=== PATIENT | male | born 1960 | race African-American/Black ===

== ENCOUNTER 2016-07-07 18:43 | Emergency (ER) | payer BC, OTHER ==
--- NOTE | 2016-07-07 19:02 | ED Physician Documentation ---
Lower Extremity Problem - HISTORIAN Historian: patient - HPI Location of Injury: L leg Onset: other (yesterday) Recent Injury: No Quality: pain, swelling Exacerbated By: walking Relieved By: nothing Associated Symptoms: denies: chest pain, shortness of breath, rapid heart rate Further Comments: yes (Patient has not had any knee effusion or joint pain. No trauma to the calf, pain feels like it is in the muscle) - ROS CONST: no problems - PAST HX Past History: other (HTN, GERDS) PE Risk Factors: hypertension, leg swelling. denies: hx DVT, recent surgery, bedridden Surgeries/Procedures: none - FAMILY HX Family History: none, other (sisters withCVA) - REVIEWED ASSESSMENTS Nursing Assessment Reviewed: Yes Vitals Reviewed: Yes <Darren Trevizo - Last Filed: 07/07/16 19:54> - HPI Stated Complaint: L calf pain Chief Complaint: Lower Extremity Problem Further Comments: yes (Patient has not had any knee effusion or joint pain. No trauma to the calf, pain feels like it is in the muscle.) - ROS CONST: no problems MS/SKIN/LYMPH: other (L calf pain) CVS/RESP: none GI/: none EYES/ENT: none - SOCIAL HX Smoking History: non-smoker <Andrzej Escamilla - Last Filed: 07/07/16 20:45> - PAST HX Allergies/Adverse Reactions: Allergies Allergy/AdvReac Type Severity Reaction Status Date / Time No Known Allergies Allergy Verified 07/07/16 19:10 Home Medications: Ambulatory Orders Medication Instructions Recorded Amlodipine Besylate [Amlodipine 1 tab PO QDAY 06/19/14 Besylate] Fluticasone/Salmeterol [Advair 1 puff INH PRN PRN 06/19/14 500-50 Diskus] Omeprazole [Omeprazole] 1 cap PO [id number] 06/19/14 Aspirin 81 mg PO DAILY u2 07/02/14 Folic Acid 0.8 mg PO DAILY u2 07/02/14 Lisinopril/Hctz 20-12.5 1 each PO DAILY u2 07/02/14 [Zestoretic 20-12.5] Multivitamin [Daily Value] 1 each PO DAILY u2 07/02/14 Albuterol Sulfate [Proair 90 mcg IH Q6H PRN 07/07/16 Respiclick] Allopurinol [Zyloprim] 300 mg PO QDAY 07/07/16 Montelukast Sodium [Singulair] 10 mg PO QDAY 07/07/16 Sildenafil Citrate [Viagra] 25 mg PO 7HS 07/07/16 - VITAL SIGNS Vital Signs: Vital Signs Temp Pulse Resp BP Pulse Ox 89 16 146/79 95 07/07/16 18:45 07/07/16 18:45 07/07/16 18:45 07/07/16 18:45 (Darren Trevizo) (Andrzej Escamilla) Progress <Darren Trevizo - Last Filed: 07/07/16 19:54> <Andrzej Escamilla - Last Filed: 07/07/16 20:45> - Progress Progress: Pt states that pain in L calf began shortly after his knee popped. Pt is a non- smoker. D-dimer wnl. IONA wrap. Toradol 60 mg IM in ER. IONA wrap. Pt improved with less pain after Toradol and IONA wrap. Possible phlebitis. Pt will continue naproxen 220 mg po two or three times daily. Pt has naproxen at home. Pt is aware of elevated T. Bili and has made arrangements for f/u and u/s studies. Take Naproxen 220 mg tablets. One tablet by mouth two or three times daily. Take with food. (Andrzej Escamilla) Lower Extremity Problem - EXAM General Appearance: mild distress Hips: bilateral hip: non-tender, normal inspection, normal range of motion, no evidence of injury Legs: right: non-tender, normal inspection, normal range of motion, no evidence of injury, left: pain (poaterior claf area), soft tissue tenderness, swelling, N /A: joint effusion (none) Knees: bilateral: non-tender, normal inspection, normal range of motion, no evidence of injury RESPIRATORY: no resp distress, chest non-tender. No: wheezes, rales, rhonchi CVS: reg rate & rhythm, heart sounds normal, equal pulses, no murmur, no gallop JOINT: joints nml VASCULAR: no vascular compromise NEURO/PSYCH: oriented X3, mood/affect nml, cognition normal <Darren Trevizo - Last Filed: 07/07/16 19:54> Discharge <Darren Trevizo - Last Filed: 07/07/16 19:54> Decision to Admit: NO Decision Time: 20:34 <Andrzej Escamilla - Last Filed: 07/07/16 20:45> Clincal Impression: L calf pain, probable phlebitis Referrals: Humble Saravia [Primary Care Provider] - Home Medications: Ambulatory Orders Amlodipine Besylate [Amlodipine Besylate] 1 tab PO QDAY 06/19/14 Fluticasone/Salmeterol [Advair 500-50 Diskus] 1 puff INH PRN PRN 06/19/14 Omeprazole [Omeprazole] 1 cap PO [id number] 06/19/14 Aspirin 81 mg PO DAILY u2 07/02/14 Folic Acid 0.8 mg PO DAILY u2 07/02/14 Lisinopril/Hctz 20-12.5 [Zestoretic 20-12.5] 1 each PO DAILY u2 07/02/14 Multivitamin [Daily Value] 1 each PO DAILY u2 07/02/14 Albuterol Sulfate [Proair Respiclick] 90 mcg IH Q6H PRN 07/07/16 Allopurinol [Zyloprim] 300 mg PO QDAY 07/07/16 Montelukast Sodium [Singulair] 10 mg PO QDAY 07/07/16 Sildenafil Citrate [Viagra] 25 mg PO 7HS 07/07/16 Condition: Good Disposition: 01 HOME, SELF-CARE
[2016-07-07 19:51] LABS: MEAN CORPUSCULAR HEMOGLOBIN 26.5 pg (28.0-34.0); eGFR (African) > 60; eGFR (Non-African) > 60
[2016-07-07] MEDS ORDERED: KETOROLAC TROMETHAMINE 60 MG/2 ML VIAL IM ONE (20:03)
[2016-07-07 20:08] LABS: ANISOCYTOSIS 1+ (NEGATIVE); EOSINOPHILS % 1 % (0-7); MONOCYTES % 2 % (0-11); SEGMENTED NEUTROPHILS % 56 % (39-79)
[2016-07-07 20:49] VITALS: BP 133/71
== END 2016-07-07 20:38 | disposition home or self-care (01) ==
LOC: ED 18:43
DX: M79.662 Pain in left lower leg (principal)
CPT/HCPCS: 80053; 85025; 85379; J1885; 96372; 99283

== ENCOUNTER 2018-11-20 16:57 | Emergency (ER) | payer OTHER ==
--- NOTE | 2018-11-20 17:16 | ED Physician Documentation ---
Foot Injury - HISTORIAN Historian: patient - HPI Chief Complaint: Foot Injury Additional Information: Patient is a 58-year-old male that presents to the ER with c/o left foot pain that started a week ago after dropping a suitcase on the foot. He has been able to ambulate but pain seems to be worsening. He started taking his gout medication yesterday thinking that was the cause but description does not sound like gout. Onset: days ago (1 weeks ago) Where: home Severity: moderate Context: other (suitcase fell on foot) Associated Symptoms:: unable to bear weight (painful) Modifying Factors:: pain on movement - ROS CONST: no problems CVS/RESP: none NEURO: denies: head injury GI/: denies: nausea MS/SKIN/LYMPH: foot swelling (left lateral tenderness) - PAST HX Past History: other (HTN, Gout, HLD, Asthma) Immunizations: UTD Allergies/Adverse Reactions: Allergies Allergy/AdvReac Type Severity Reaction Status Date / Time No Known Allergies Allergy Verified 07/07/16 19:10 Home Medications: Ambulatory Orders Medication Instructions Recorded Amlodipine Besylate 1 tab PO QDAY 06/19/14 Fluticasone Propion/Salmeterol 1 puff INH PRN PRN 06/19/14 [Advair 500-50 Diskus] Omeprazole 1 cap PO [id number] 06/19/14 Aspirin 81 mg PO DAILY u2 07/02/14 Folic Acid 0.8 mg PO DAILY u2 07/02/14 Lisinopril/Hctz 20-12.5 1 each PO DAILY u2 07/02/14 [Zestoretic 20-12.5] Multivitamin [Daily Value] 1 each PO DAILY u2 07/02/14 Albuterol Sulfate [Proair 90 mcg IH Q6H PRN 07/07/16 Respiclick] Allopurinol [Zyloprim] 300 mg PO QDAY 07/07/16 Montelukast Sodium [Singulair] 10 mg PO QDAY 07/07/16 Sildenafil Citrate [Viagra] 25 mg PO 7HS 07/07/16 Colchicine 0.6 mg PO BID PRN 11/20/18 Meloxicam [Mobic] 7.5 mg PO BID #20 tablet 11/20/18 - SOCIAL HX Smoking History: quit greater than 1 year Alcohol Use: rarely Drug Use: none - FAMILY HX Family History: none - VITAL SIGNS Vital Signs: Vital Signs Temp Pulse Resp BP Pulse Ox 133/71 07/07/16 20:40 - REVIEWED ASSESSMENTS Nursing Assessment Reviewed: Yes Vitals Reviewed: Yes ED Results Lab/Radiology - Radiology Radiology Impressions: Left foot 3 views Date of Exam: November 20, 2018. History: LEFT FOOT INJURY / PT STATES PAIN ON LATERAL SIDE OF FOOT (Hx) / Findings: No acute fracture or dislocation is identified. The metatarsals and phalanges are intact. The tibiotalar alignment is maintained. There is diffuse soft tissue edema. Slight calcaneal spurring is noted. Impression: No acute osseous abnormality. Diffuse soft tissue edema. - Orders Orders: ED Orders Category Date Time Status FOOT 3 VIEWS OR MORE [RAD] Stat Exams 11/20/18 Ordered Foot Injury Physical Exam - Physical Exam General Appearance: alert, mild distress Foot: left foot: pain, soft tissue tenderness Ankle: bilateral: non-tender, normal inspection Gait: limited by pain Neuro: sensation nml, motor nml Vascular: no vascular compromise Tendons: tendon function nml Leg/Knee/Thigh: uninjured above ankle Skin: intact, warm Head/ENT: nml inspection Neck/Back: nml inspection Resp/CVS: breath sounds nml, heart sounds nml Abdomen: non-tender Discharge Clincal Impression: Contusion of left foot Prescriptions: Meloxicam [Mobic] 7.5 mg PO BID #20 tablet Referrals: Primary Doctor,No [Primary Care Provider] - 2 Days Additional Instructions: Wear santiago wrap for support Take Meloxicam 7.5mg by mouth twice a day for pain/inflammation Elevate foot as possible Follow up with PCP next week if no improvement Condition: Good Disposition: 01 HOME, SELF-CARE Decision to Admit: NO Decision Time: 17:40
[2018-11-20 17:19] VITALS: BP 142/73
[2018-11-20] MEDS ORDERED: KETOROLAC TROMETHAMINE 60 MG/2 ML VIAL IM ONE (17:36)
--- NOTE | 2018-11-21 05:29 | Diagnostic Imaging Report ---
SETH NAVARRETE ED [facility] [id number] [facility].[address] [id number] Report Submission Date: Nov 20, 2018 5:31:39 PM CDT Patient Study Name: NOLBERTO GARCIA Date: Nov 20, 2018 5:14:37 PM CDT Modality Type: DX Gender: M Description: FOOT 3 VIEWS OR MORE : 58 Institution: [facility] Physician: SETH NAVARRETE ED Left foot 3 views Date of Exam: November 20, 2018. History: LEFT FOOT INJURY / PT STATES PAIN ON LATERAL SIDE OF FOOT (Hx) / Findings: No acute fracture or dislocation is identified. The metatarsals and phalanges are intact. The tibiotalar alignment is maintained. There is diffuse soft tissue edema. Slight calcaneal spurring is noted. Impression: No acute osseous abnormality. Diffuse soft tissue edema. Electronically signed on Nov 20, 2018 5:31:39 PM CDT by: Monica WEST
== END 2018-11-20 17:47 | disposition home or self-care (01) ==
LOC: ED 16:57
DX: S90.32XA Contusion of left foot, initial encounter (principal); X58.XXXA Exposure to other specified factors, initial encounter; Y99.8 Other external cause status
CPT/HCPCS: 73630; 96372; 99283; 99284; J1885